=== PATIENT | female | born 1985 | race African-American/Black ===

== ENCOUNTER 2017-03-21 15:22 | Emergency (ER) | payer MEDICAID ==
[~2017-03-21] VITALS: Ht 162.6 cm; Wt 103.0 kg
[2017-03-21 19:09] LABS: HEMATOCRIT. 35.6 % (36.0-48.0); HEMOGLOBIN. 11.3 g/dL (12.0-16.0); MEAN CORPUSCULAR HEMOGLOBIN 24.2 pg (28.0-32.0); MEAN CORPUSCULAR VOLUME 76.1 fL (81.0-99.0); MEAN PLATELET VOLUME 9.3 fl (7.4-10.4); PLATELET 216 x1000/uL (130-400); RED BLOOD CELL COUNT 4.67 mill/uL (4.2-5.4); RED CELL DISTRIBUTION WIDTH 15.4 % (11.6-14.6)
[2017-03-21 19:20] LABS: CARBON DIOXIDE 28 mEq/L (21-32); CHLORIDE 103 mEq/L (98-107)
[2017-03-21 19:24] LABS: PLATELET ESTIMATE NORMAL
[2017-03-21 21:00] VITALS: BP 145/99
== END 2017-03-21 21:21 | disposition home or self-care (01) ==
LOC: ER 16:47
DX: S60.049A Contusion of unspecified ring finger without damage to nail, initial encounter (principal); I10 Essential (primary) hypertension; R60.0 Localized edema; W18.49XA Other slipping, tripping and stumbling without falling, initial encounter; Y93.89 Activity, other specified; Y92.89 Other specified places as the place of occurrence of the external cause; Y99.8 Other external cause status
CPT/HCPCS: 36415; 71010; 80053; 81025; 85025; 93005; 99285; Z7610